=== PATIENT | male | born 1955 | race Caucasian/White ===

== ENCOUNTER 2023-03-09 23:18 | Inpatient (IN) | payer MEDICARE ==
[~2023-03-09] VITALS: Ht 177.8 cm; Wt 96.0 kg
[~2023-03-09 23:18] MED LIST: AMOXICILLIN/CL875 MG PO; ANTIPYRINE/BENZ1 SOL AS; CIPRODEX1 ML AS; CLONIDINE0.1 MG PO; HYDROCHLOROT12.5 MG PO; METOPROL TAR25 M1 PO; METOPROL TAR25 MG PO; PRILOSEC40 MG PO
--- NOTE | 2023-03-09 23:18 | NUR ---
PT ARRIVES VIA EMS STRETCHER IN STABLE CONDITION, PT ALERT TO PERSON AND PLACE, NO SLURRED SPEECH OR FACIAL DROOP NOTED, CEMENT [place] HIGHWAYS AND STREETS EQUAL AND STRONG BILATERALLY, NO DRIFT NOTED ON EXTREMITIES. PT PLACED ON STOKE BED, STROKE ALERT CALLED. VITAL SIGNS OBTAINED WHILE ENROUTE TO CT, 101.5 ORALLY. PT FOLLOWS VERBAL COMMANDS, TALKING AND SMILING AT STAFF.
--- NOTE | 2023-03-09 23:30 | NUR ---
CAT SCAN BEING DONE AT THIS TIME. TELEMED CART AT PT'S BEDSIDE. AWAITING CALL FROM TELENEUROLOGY.
[2023-03-09 23:43] LABS: BASO% 0.1 % (0-3); EOS% 0.2 % (0-8); HEMATOCRIT 41.9 % (39.0-50.0); HEMOGLOBIN 14.7 g/dl (14.0-18.0); IMMATURE GRANULOCYTES 0.2 % (0.0-5.0); MEAN CELL VOLUME 84.8 fL CALC (80.0-100.0); MEAN CORPUSCULAR HGB 29.8 pG CALC (26.0-32.0); MEAN CORPUSCULAR HGB CONC 35.1 g/dL CAL (32.0-36.0); MONO% 2.8 % (2-13); NEUT# 11.8 thou/uL (1.82-7.42); NEUT% 91.7 % (42-76); RED BLOOD COUNT 4.94 mill/uL (4.70-6.10)
--- NOTE | 2023-03-09 23:48 | NUR ---
CALL FROM TELESPECIALIST TO INFORM ME THAT TELENEUROLOGIST IS UNABLE TO CONTACT ME VIA TELEMED AND THAT AN AUDIO CALL WILL BE MADE. NO CHANGE IN PT STATUS. PT REMAINS ON CT TABLE WITH NO COMPLAINTS VOICED.
[2023-03-09 23:53] LABS: ALBUMIN 4.4 g/dL (3.2-5.0); BILIRUBIN, TOTAL 1.4 mg/dL (0.2-1.3); CREATININE 1.6 mg/dL (0.7-1.3); POTASSIUM 3.4 mmol/l (3.5-5.1); TOTAL PROTEIN 7.6 g/dL (6.3-8.2)
[2023-03-09 23:56] LABS: CHOLESTEROL HDL RATIO 3.6 (<4.4 (CALC))
[2023-03-09 23:57] LABS: INTERNATIONAL NORMALIZED RATIO 1.1 RATIO (0.7-1.3); PROTHROMBIN TIME 10.6 SECONDS (9.0-12.5)
[2023-03-10] VITALS (81 sets, daily range): BP systolic 73–193; BP diastolic 30–123
--- NOTE | 2023-03-10 | NUR ---
CALL FROM CHARGE NURSE STATING THAT NO CTA TO BE PERFORMED PER DR PULIDO S/T CREATININE OF 1.8 AND GFR OF 41, PT BROUGHT TO ER ROOM 11 VIA STRETCHER IN STABLE CONDITION. SPOUSE AT BEDSIDE. PLACED ON TECHNICAL SUPPORT REPRESENTATIVE WHICH SHOWS SINUS TACH 101. PT FOLLOWING VERBAL COMMANDS, TALKING WITH SPOUSE WITH CLEAR SPEECH. SMILE IS SYMMETRICAL,
--- NOTE | 2023-03-10 00:30 | NUR ---
IVF INFUSING LEFT AC, SITE WITHOUT REDNESS/SWELLING. VITAL SIGNS STABLE. NO NEURO DEFICITS NOTED AT THIS TIME. SPOUSE REMAINS AT BEDSIDE.
[2023-03-10] MEDS ORDERED: MEMANTINE HYDROC5 MG PO (00:54)
[2023-03-10] MEDS ORDERED: LIPITOR10 M1 PO (00:55)
[2023-03-10] MEDS ORDERED: CHLORTHALIDONE25 MG PO (00:56)
[2023-03-10] MEDS ORDERED: VALSARTAN160 MG PO (00:56)
[2023-03-10 00:57] LABS: URINE BILIRUBIN - DIPSTICK Negative (NEGATIVE); URINE BLOOD DIPSTICK Trace-lysed (NEGATIVE); URINE GLUCOSE - DIPSTICK Negative (NEGATIVE); URINE KETONE Negative (NEGATIVE); URINE NITRITE - DIPSTICK Negative (Negative); URINE PH 6.5 (4.5-8.0); URINE UROBILINOGEN - DIPSTICK 0.2 E.U./dL (0.2)
[2023-03-10 01:04] LABS: URINE COLOR Yellow; URINE LEUK ESTERASE Small (NEGATIVE); URINE PROTEIN - DIPSTICK Negative (NEG-TRACE)
[2023-03-10 01:06] LABS: URINE BACTERIA MODERATE hpf; URINE EPITHELIAL CELLS MODERATE EPI/hpf (0-FEW)
--- NOTE | 2023-03-10 01:30 | NUR ---
DR PULIDO AT BEDSIDE TO DISCUSS CLINICAL FINDINGS AND PLANS FOR ADMISSION. PT AND SPOUSE VERBALIZED UNDERSTANDING. PT REQUESTING URINAL, 300CC YELLOW URINE NOTED.
--- NOTE | 2023-03-10 02:00 | NUR ---
REPORT CALLED TO UVALDO WATTS. PATIENT BEING TRANSFERRED TO ICU 4 MEDSURG OVERFLOW.
--- NOTE | 2023-03-10 02:30 | NUR ---
PATIENT TRANSFERRED TO ICU 4, VSS, AIRWAY PATENT, ALL BELONGINGS SENT WITH PATIENT, PATIENT ALERT AND ORIENTATED, PATIENT ABLE TO WALK SLOWLY WITH X2 NURSE ASSIST TO ICU BED. PATIENT VOICES APPRECIATION OF CARE, NURSE WATTS AT BEDSIDE.
--- NOTE | 2023-03-10 05:10 | NUR ---
SPOKE WITH DR JIANG R/T PATIENT BP, LEVOPHED ORDERED PRN FOR MAP LESS THAN 65. PATIENT OOB TO URINATE, LINENS CHANGED, GOWN CHANGED, PATIENT AWAKE AND ALERT, CONFUSED AT TIMES. NEW ORDER FAXED TO [facility].
[2023-03-10 07:25] LABS: BASO% 0.1 % (0-3); EOS% 0.1 % (0-8); HEMATOCRIT 37.1 % (39.0-50.0); HEMOGLOBIN 13.1 g/dl (14.0-18.0); IMMATURE GRANULOCYTES 0.3 % (0.0-5.0); LYMPH% 9.3 % (15-41); MEAN CELL VOLUME 85.7 fL CALC (80.0-100.0); MEAN CORPUSCULAR HGB 30.3 pG CALC (26.0-32.0); MEAN CORPUSCULAR HGB CONC 35.3 g/dL CAL (32.0-36.0); MONO% 8.9 % (2-13); NEUT# 15.71 thou/uL (1.82-7.42); NEUT% 81.3 % (42-76); RED BLOOD COUNT 4.33 mill/uL (4.70-6.10); RED CELL DISTRI WIDTH 12.1 % (11.5-15.5)
--- NOTE | 2023-03-10 07:40 | NUR ---
report received from Rekha Spencer RN; care assumed
[2023-03-10 07:53] LABS: C-REACTIVE PROTEIN 3.9 mg/dL (0-0.9); CHOLESTEROL HDL RATIO 3.6 (<4.4 (CALC)); CREATININE 1.6 mg/dL (0.7-1.3); MAGNESIUM 1.4 mg/dL (1.6-2.3); POTASSIUM 3.7 mmol/l (3.5-5.1)
--- NOTE | 2023-03-10 08:20 | NUR ---
pt awake in bed; no apparent distress noted; pt offers no complaints; assessment completed at this time; pt alert to person and place; confusion is noted; pt denies pain; no n/v noted; resp even and unlabored; lungs clear; skin color wnl; ra; hr reg; strong pulses; edema noted; sr on monitor; abd soft with bs present; no bm noted per inspector automatic typewriter; pt voiding without complication; no redness or edema noted at site; #18 patent to lac with ivf/ levophed gtt infusing at 4mcg/min; no redness or edema noted at site; #22 started to rh x1 attempt; flushed and patent; plan of care/am meds explained; call light within reach; will continue to monitor
--- NOTE | 2023-03-10 10:00 | NUR ---
awake in bed; sr on monitor; will continue to monitor
--- NOTE | 2023-03-10 11:48 | NUR ---
Dr Allen present at bedside to assess pt and discuss plan of care
--- NOTE | 2023-03-10 12:00 | NUR ---
awake in bed; spouse at bedside; pt offers no complaints; iv intact; will continue to monitor
--- NOTE | 2023-03-10 14:06 | NUR ---
awake; out of bed per self; pt has dislodged iv to lac; assist back to bed; neuro consult completed with Dr Gilmore at this time; no neuro deficits noted; recommendations dictated/reviewed; will continue to monitor
--- NOTE | 2023-03-10 14:50 | NUR ---
call placed to Dr Allen in regards to neurology recommendation of changing cefepime; Dr Allen informed software writer keep medication for now and await MRI results prior to changing medications;
--- NOTE | 2023-03-10 14:56 | NUR ---
pt transferred to MRI via wc accompanied by Jackie Shetty CNA; pt in stable condition; MRI screening verified with pt and sign other prior to; pt has been pre-medicated
--- NOTE | 2023-03-10 15:42 | NUR ---
bp reassessed ; pt transferred to med surg tele room 279 accompanied by Kenny Rangel RN; belongings sent with pt; report provided at bedside
--- NOTE | 2023-03-10 16:04 | NUR ---
RECEIVE REPORT FROM GERONIMO BAILON. PATIENT ALERT AND ORIENTED X1. STABLE AT THIS TIME. PT IS TRANSFER TO MED SURG UNIT. PATIENT IS EDUCATED ABOUD TRNASFER, MEDICATIONS AND NURSING PLAN. PT REFER UNDERSTAND. SAFETY AND FALL PRECAUTIONS IN PLACE. CALL LIGHT WITHIN IN REACH.
--- NOTE | 2023-03-10 16:16 | NUR ---
awake in bed; no distress noted; aflutter on monitor; guards x2 at bedside; o2 per nc; call light within reach; will continue to monitor
[2023-03-11 00:37] VITALS: BP 106/64
[2023-03-11 04:50] VITALS: BP 115/74
[2023-03-11 07:13] VITALS: BP 132/86
--- NOTE | 2023-03-11 08:00 | NUR ---
GOT REPORT FROM HEALTH DIAGNOSTICS TEACHER. PATIENT ASSESS. AOX3. DENIES ANY COMPLAINTS AT THIS TIME. PATIENT HAS CALL LIGHT AND BEDSIDE TABLE WITH IN REACH. ADVISED TO CALL IF NEEDING ANYTHING.
[2023-03-11 09:42] LABS: HEMATOCRIT 41.4 % (39.0-50.0); HEMOGLOBIN 14.6 g/dl (14.0-18.0); MEAN CORPUSCULAR HGB 30.7 pG CALC (26.0-32.0); MEAN CORPUSCULAR HGB CONC 35.3 g/dL CAL (32.0-36.0); RED BLOOD COUNT 4.76 mill/uL (4.70-6.10); RED CELL DISTRI WIDTH 12.4 % (11.5-15.5)
[2023-03-11 09:46] LABS: ALBUMIN 4.1 g/dL (3.2-5.0); BILIRUBIN, TOTAL 1.4 mg/dL (0.2-1.3); CREATININE 1.6 mg/dL (0.7-1.3); TOTAL PROTEIN 6.9 g/dL (6.3-8.2)
[2023-03-11 10:54] VITALS: BP 128/88
[2023-03-11] MEDS ORDERED: KEFLEX500 MG PO (13:37)
--- NOTE | 2023-03-11 13:55 | NUR ---
Discharge instructions given. Patient verbalizes understanding of same. Discharged in stable condition via Wheelchair to Home with family. All belongings sent with pt.
--- NOTE | 2023-03-11 14:25 | NUR ---
PRELIMINARY BLOOD CULTURE RESULTS XIE TO DR MOSQUEDA. NO CHANGES NEEDED
--- NOTE | 2023-03-12 08:09 | NUR ---
FINAL BLOOD CULTURE RESULTS CALLED TO DR MOSQUEDA. CORYNRBACTERIUM IS CONSIDERATE A CONTAMINATION. NO NEW ORDERS.
--- NOTE | 2023-03-13 07:20 | NUR ---
NEW RX FOR CEFDINIR 300MG CALLED TO [facility], PATIENT IS AWARE AND WILL FLIGHT PARAMEDIC.
== END 2023-03-11 13:55 | disposition home or self-care (01) | DRG 871 ==
LOC: ED 23:18 → ED-I 03-10 01:15 → ED 03-10 01:48 → ICU 03-10 01:49 → MS2 03-10 15:44
PROVIDERS: Emergency Medicine; Student in an Organized Health Care Education/Training Program; ADMIT Internal Medicine; ATTEND Internal Medicine
DX: A41.9 Sepsis, unspecified organism (principal); G93.41 Metabolic encephalopathy; N39.0 Urinary tract infection, site not specified; N17.9 Acute kidney failure, unspecified; R65.20 Severe sepsis without septic shock; I10 Essential (primary) hypertension; F03.90 Unspecified dementia, unspecified severity, without behavioral disturbance, psychotic disturbance, mood disturbance, and anxiety; B96.89 Other specified bacterial agents as the cause of diseases classified elsewhere
CPT/HCPCS: J0692; J2060; J3475

== ENCOUNTER 2024-03-30 18:32 | Observation (INO) | payer MEDICARE ==
[~2024-03-30] VITALS: Ht 177.8 cm; Wt 81.8 kg
[~2024-03-30 18:32] MED LIST changes: +CHLORTHALIDONE25 MG PO; +KEFLEX500 MG PO; +LIPITOR10 M1 PO; +MEMANTINE HYDROC5 MG PO; +VALSARTAN160 MG PO
[2024-03-30 18:38] VITALS: BP 131/86
[2024-03-30 19:21] LABS: BASO% 0.2 % (0-3); EOS% 0.5 % (0-8); HEMATOCRIT 42.6 % (39.0-50.0); HEMOGLOBIN 14.9 g/dl (14.0-18.0); IMMATURE GRANULOCYTES 0.1 % (0.0-5.0); LYMPH% 12.3 % (15-41); MEAN CELL VOLUME 85.5 fL CALC (80.0-100.0); MEAN CORPUSCULAR HGB 29.9 pG CALC (26.0-32.0); MONO% 10.4 % (2-13); NEUT# 7.49 thou/uL (1.82-7.42); NEUT% 76.5 % (42-76); RED BLOOD COUNT 4.98 mill/uL (4.70-6.10); RED CELL DISTRI WIDTH 12.9 % (11.5-15.5)
[2024-03-30 19:30] VITALS: BP 123/71
[2024-03-30 19:32] LABS: ALBUMIN 4.3 g/dL (3.2-5.0); BILIRUBIN, TOTAL 1.3 mg/dL (0.2-1.3); CREATININE 1.2 mg/dL (0.7-1.3); POTASSIUM 3.7 mmol/l (3.5-5.1); TOTAL PROTEIN 6.9 g/dL (6.3-8.2)
[2024-03-30] MEDS ORDERED: AMLODIPINE BESY10 MG PO (21:26)
[2024-03-30] MEDS ORDERED: MAGNESIUM HYDROXIDE 30 ML UDC PO PRN (21:35)
[2024-03-30] MEDS ORDERED: ACETAMINOPHEN 325 MG/TAB PO PRN (21:35)
[2024-03-30] MEDS ORDERED: SODIUM CHLORIDE 0.9% 1,000 ML IV PRN (21:35)
[2024-03-30] MEDS ORDERED: ACETAMINOPHEN 500 MG TAB PO ONE (21:40)
[2024-03-30] MEDS ORDERED: KETOROLAC TROMETHAMINE 30 MG/ML SDV IV ONE (21:40)
[2024-03-30 22:10] VITALS: BP 142/83
[2024-03-30] MEDS ORDERED: KETOROLAC TROMETHAMINE 15 MG/ML SDV IV PRN (22:35)
[2024-03-30] MEDS ORDERED: HYDROcodone 5 MG/Acetaminophen 325 MG/COMBO PO PRN (22:35)
[2024-03-30] MEDS ORDERED: MORPHINE SULFATE 4 MG/ML VIAL IV PRN (22:35)
[2024-03-31] VITALS (8 sets, daily range): BP systolic 108–170; BP diastolic 70–106
[2024-03-31 04:37] LABS: BASO% 0.2 % (0-3); EOS% 0.8 % (0-8); HEMATOCRIT 40.6 % (39.0-50.0); HEMOGLOBIN 14.1 g/dl (14.0-18.0); IMMATURE GRANULOCYTES 0.2 % (0.0-5.0); MEAN CELL VOLUME 86.8 fL CALC (80.0-100.0); MEAN CORPUSCULAR HGB 30.1 pG CALC (26.0-32.0); MEAN CORPUSCULAR HGB CONC 34.7 g/dL CAL (32.0-36.0); NEUT# 6.54 thou/uL (1.82-7.42); NEUT% 70.8 % (42-76); RED BLOOD COUNT 4.68 mill/uL (4.70-6.10); RED CELL DISTRI WIDTH 12.8 % (11.5-15.5)
[2024-03-31 04:44] LABS: BILIRUBIN, TOTAL 1.8 mg/dL (0.2-1.3); CHOLESTEROL HDL RATIO 2.1 (<4.4 (CALC)); CREATININE 1.3 mg/dL (0.7-1.3); POTASSIUM 3.8 mmol/l (3.5-5.1); TOTAL PROTEIN 6.5 g/dL (6.3-8.2)
[2024-03-31 04:47] LABS: MAGNESIUM 1.9 mg/dL (1.6-2.3)
[2024-03-31 05:54] LABS: URINE BILIRUBIN - DIPSTICK Negative (NEGATIVE); URINE BLOOD DIPSTICK Negative (NEGATIVE); URINE GLUCOSE - DIPSTICK Negative (NEGATIVE); URINE KETONE 15 mg/dL (NEGATIVE); URINE LEUK ESTERASE Negative (NEGATIVE); URINE NITRITE - DIPSTICK Negative (Negative); URINE PROTEIN - DIPSTICK 30 mg/dL (NEG-TRACE); URINE UROBILINOGEN - DIPSTICK 0.2 E.U./dL (0.2)
[2024-03-31 05:56] LABS: URINE COLOR Yellow
[2024-03-31 06:05] LABS: URINE SQUAMOUS EPITHELIAL CELL RARE EPI/hpf (0-FEW)
[2024-03-31] MEDS ORDERED: MEMANTINE Hydrochloride 10 MG/TAB PO SCH (09:00)
[2024-03-31] MEDS ORDERED: amLODIPine BESYLATE 5 MG/TAB PO SCH (09:00)
[2024-03-31] MEDS ORDERED: METOPROLOL TARTRATE 25 MG/TAB PO SCH (11:00)
[2024-03-31] MEDS ORDERED: SODIUM CHLORIDE 0.9% 1,000 ML IV PRN (14:40)
[2024-03-31] MEDS ORDERED: ENOXAPARIN SODIUM 40 MG/0.4 ML SYR SC SCH (21:00)
[2024-03-31] MEDS ORDERED: ATORVASTATIN CALCIUM 10 MG/TAB PO SCH (21:00)
[2024-04-01 04:26] VITALS: BP 125/74
[2024-04-01 05:24] LABS: BASO% 0.4 % (0-3); EOS% 0.7 % (0-8); HEMATOCRIT 40.7 % (39.0-50.0); HEMOGLOBIN 14.3 g/dl (14.0-18.0); IMMATURE GRANULOCYTES 0.3 % (0.0-5.0); LYMPH% 16.5 % (15-41); MEAN CELL VOLUME 85.7 fL CALC (80.0-100.0); MEAN CORPUSCULAR HGB 30.1 pG CALC (26.0-32.0); MEAN CORPUSCULAR HGB CONC 35.1 g/dL CAL (32.0-36.0); MONO% 10.5 % (2-13); NEUT# 5.38 thou/uL (1.82-7.42); NEUT% 71.6 % (42-76); RED BLOOD COUNT 4.75 mill/uL (4.70-6.10); RED CELL DISTRI WIDTH 12.6 % (11.5-15.5)
[2024-04-01 05:29] LABS: ALBUMIN 3.4 g/dL (3.2-5.0); TOTAL PROTEIN 6.3 g/dL (6.3-8.2)
[2024-04-01 05:41] LABS: POTASSIUM 3.5 mmol/l (3.5-5.1)
[2024-04-01 05:43] LABS: PROTHROMBIN TIME 9.9 SECONDS (9.0-12.5)
[2024-04-01 06:11] LABS: BILIRUBIN, TOTAL 1.1 mg/dL (0.2-1.3); CREATININE 1.4 mg/dL (0.7-1.3); MAGNESIUM 1.8 mg/dL (1.6-2.3)
[2024-04-01 06:40] VITALS: BP 130/83
[2024-04-01 15:02] VITALS: BP 112/65
[2024-04-01 18:56] VITALS: BP 144/80
[2024-04-02 03:56] VITALS: BP 134/79
[2024-04-02 06:43] LABS: ALBUMIN 3.9 g/dL (3.2-5.0); BILIRUBIN, TOTAL 1.1 mg/dL (0.2-1.3); CREATININE 1.4 mg/dL (0.7-1.3); MAGNESIUM 1.8 mg/dL (1.6-2.3); POTASSIUM 3.7 mmol/l (3.5-5.1); TOTAL PROTEIN 6.6 g/dL (6.3-8.2)
[2024-04-02 06:44] LABS: BASO% 0.3 % (0-3); EOS% 0.4 % (0-8); HEMATOCRIT 43.1 % (39.0-50.0); HEMOGLOBIN 15.2 g/dl (14.0-18.0); IMMATURE GRANULOCYTES 0.2 % (0.0-5.0); LYMPH% 10.5 % (15-41); MEAN CELL VOLUME 84.8 fL CALC (80.0-100.0); MEAN CORPUSCULAR HGB 29.9 pG CALC (26.0-32.0); MEAN CORPUSCULAR HGB CONC 35.3 g/dL CAL (32.0-36.0); MONO% 11.2 % (2-13); NEUT# 7.47 thou/uL (1.82-7.42); NEUT% 77.4 % (42-76); RED BLOOD COUNT 5.08 mill/uL (4.70-6.10); RED CELL DISTRI WIDTH 12.4 % (11.5-15.5)
[2024-04-02 07:17] VITALS: BP 153/79
[2024-04-02 08:20] VITALS: BP 170/916
[2024-04-02] MEDS ORDERED: LOPRESSOR25 MG PO (10:56)
== END 2024-04-02 14:29 ==
LOC: ED 18:32 → ED-I 19:23 → ED 21:20 → MS2 21:21
PROVIDERS: Nurse Practitioner Family; ADMIT Student in an Organized Health Care Education/Training Program; ATTEND Student in an Organized Health Care Education/Training Program
DX: S82.841A Displaced bimalleolar fracture of right lower leg, initial encounter for closed fracture (principal); R53.1 Weakness; R62.7 Adult failure to thrive; I12.9 Hypertensive chronic kidney disease with stage 1 through stage 4 chronic kidney disease, or unspecified chronic kidney disease; N18.31 Chronic kidney disease, stage 3a; G30.9 Alzheimer's disease, unspecified; F02.80 Dementia in other diseases classified elsewhere, unspecified severity, without behavioral disturbance, psychotic disturbance, mood disturbance, and anxiety; W19.XXXA Unspecified fall, initial encounter; Y92.009 Unspecified place in unspecified non-institutional (private) residence as the place of occurrence of the external cause; Z91.81 History of falling; Z20.822 Contact with and (suspected) exposure to COVID-19
CPT/HCPCS: G0378; J1650

== ENCOUNTER 2024-04-22 10:31 | Inpatient (IN) | payer MEDICARE ==
[~2024-04-22] VITALS: Ht 177.8 cm; Wt 79.9 kg
[2024-04-22] VITALS (39 sets, daily range): BP systolic 78–143; BP diastolic 39–84
[~2024-04-22 10:31] MED LIST changes: +AMLODIPINE BESY10 MG PO; +LOPRESSOR25 MG PO
--- NOTE | 2024-04-22 10:31 | NUR ---
PT BROUGHT BACK TO ER ROOM 6 VIA EMS, NO DISTRESS NOTED
[2024-04-22] MEDS ORDERED: SODIUM CHLORIDE 0.9% 1,000 ML IV ONE ×2 (10:50→13:50)
[2024-04-22 10:56] LABS: BASO% 0.4 % (0-3); EOS% 1.3 % (0-8); HEMOGLOBIN 13.7 g/dl (14.0-18.0); IMMATURE GRANULOCYTES 0.3 % (0.0-5.0); LYMPH% 13.5 % (15-41); MEAN CELL VOLUME 87.6 fL CALC (80.0-100.0); MEAN CORPUSCULAR HGB 29.3 pG CALC (26.0-32.0); MEAN CORPUSCULAR HGB CONC 33.4 g/dL CAL (32.0-36.0); MONO% 7.1 % (2-13); NEUT# 6.15 thou/uL (1.82-7.42); NEUT% 77.4 % (42-76); RED BLOOD COUNT 4.68 mill/uL (4.70-6.10); RED CELL DISTRI WIDTH 11.7 % (11.5-15.5)
--- NOTE | 2024-04-22 11:04 | NUR ---
PT RESTING IN BED, VSS, PTS S/O AT BEDSIDE
[2024-04-22 11:08] LABS: ALBUMIN 4.1 g/dL (3.2-5.0); CREATININE 1.5 mg/dL (0.7-1.3); POTASSIUM 3.7 mmol/l (3.5-5.1)
[2024-04-22] MEDS ORDERED: REMERON15 MG PO (11:13)
[2024-04-22] MEDS ORDERED: TAMSULOSIN0.4 MG PO (11:14)
[2024-04-22] MEDS ORDERED: AMLODIPINE BESYL5 MG PO (11:18)
[2024-04-22] MEDS ORDERED: AZITHROMYCIN 500 MG in SODIUM CHLORIDE 0.9% 250 ML IV ONE (12:45)
[2024-04-22] MEDS ORDERED: cefTRIAXone SODIUM 2 GM in SODIUM CHLORIDE 0.9% 100 ML IV ONE (12:45)
--- NOTE | 2024-04-22 13:18 | NUR ---
REPLACED THE PTS ALMARAZ CATH, PER MD VERBAL ORDER, PT TOLERATED WELL, URINE SAMPLE COLLECTED, PT LEFT RESTING IN BED, HIS S/O AT SIDE, CALL LIGHT WITHIN REACH
[2024-04-22 13:59] LABS: URINE BILIRUBIN - DIPSTICK Negative (NEGATIVE); URINE BLOOD DIPSTICK Large (NEGATIVE); URINE GLUCOSE - DIPSTICK Negative (NEGATIVE); URINE KETONE Negative (NEGATIVE); URINE PROTEIN - DIPSTICK 100 mg/dL (NEG-TRACE); URINE SPECIFIC GRAVITY 1.025
[2024-04-22 14:00] LABS: URINE COLOR Yellow; URINE LEUK ESTERASE Small (NEGATIVE); URINE NITRITE - DIPSTICK Positive (Negative)
[2024-04-22] MEDS ORDERED: AZITHROMYCIN 500 MG/VIAL SDV IV ONE (14:00)
[2024-04-22 14:01] LABS: URINE BACTERIA MANY hpf; URINE EPITHELIAL CELLS MODERATE EPI/hpf (0-FEW)
[2024-04-22] MEDS ORDERED: ACETAMINOPHEN 325 MG/TAB PO PRN (14:50)
[2024-04-22] MEDS ORDERED: SODIUM CHLORIDE 0.9% 1,000 ML IV PRN (14:50)
[2024-04-22] MEDS ORDERED: MAGNESIUM HYDROXIDE 30 ML UDC PO PRN (14:50)
--- NOTE | 2024-04-22 15:03 | NUR ---
AT BEDSIDE, UPDATING THE PT AND HIS FAMILY ON THE PLAN OF CARE
--- NOTE | 2024-04-22 16:42 | NUR ---
CALLED [facility] SPOKE WITH ELPIDIO GAVE PT INFO, PT TO BE ADMITED TO [facility] BED 280 ON TELE [address]
[2024-04-22] MEDS ORDERED: ATORVASTATIN CALCIUM 10 MG/TAB PO SCH (17:00)
--- NOTE | 2024-04-22 20:00 | NUR ---
RECEIVED REPORT FROM DAYSHIFT NURSE ELPIDIO. PT NOTED SITTING UP FOWLERS IN BED, ON RM AIR. TELE MONITOR IN PLACE AND ALMARAZ CATHETER NOTED WITH TAN COLORED URINE. PT IS A/O TO SELF ONLY, CONFUSED ON PLACE, TIME AND SITUATION. EDUCATED PT ON PLAN OF CARE, MED SCHEDULE AND ORIENTED PT TO ROOM AND CALL GALLEGOS. WILL NEED TO REINFORCE. NURSING ASSESSMENT COMPLETED, IV SITE APPEARS HEALTHY AND INTACT AT THIS TIME. CALL LIGHT WITHIN REACH AND SAFETY PRECAUTIONS IN PLACE.
[2024-04-22] MEDS ORDERED: MIRTAZAPINE 15 MG/TAB PO SCH (21:00)
[2024-04-22] MEDS ORDERED: MEMANTINE Hydrochloride 10 MG/TAB PO SCH (21:00)
[2024-04-22] MEDS ORDERED: Heparin SODIUM (Porcine) 5,000 UNITS/ML SDV SC SCH (22:00)
--- NOTE | 2024-04-22 23:36 | NUR ---
PT PULLED IV OUT IN LAC, CATHETER WAS INTACT. PT NOT ABLE TO RECALL WHY HE PULLED IT OUT. PT STILL PRESENTS DIORIENTED AND CONFUSED TO PLACE, TIME AND SITUATION. REORIENTATION NEEDED. NEW IV ACCESS STARTED, IVF PER EMAR. ENCOURAGED PT NOT TO PULL AT TELE LEADS EITHER AND EDUCATED ON IMPORTANCE OF THEM, WILL HAVE TO REINFORCE. PT DENIES ANY N/V/P AT THIS TIME. LAYING IN BED SEMI FOWLERS. CALL LIGHT WITHIN REACH AND SAFETY PRECCAUTIONS IN PLACE.
[2024-04-23] VITALS (7 sets, daily range): BP systolic 113–143; BP diastolic 70–84
--- NOTE | 2024-04-23 01:38 | NUR ---
NURSE TO NURSE REPORT RECEIVED. THIS NURSE TOOK OVER CARE OF PT. PT RESTING NO DISTRESS NOTED ON EXAM. CALL LIGHT WITHIN REACH. PLAN OF CARE ONGOING.
[2024-04-23 05:19] LABS: BASO% 0.2 % (0-3); EOS% 1.2 % (0-8); HEMATOCRIT 37.2 % (39.0-50.0); HEMOGLOBIN 12.4 g/dl (14.0-18.0); IMMATURE GRANULOCYTES 0.2 % (0.0-5.0); LYMPH% 15.1 % (15-41); MEAN CELL VOLUME 87.3 fL CALC (80.0-100.0); MEAN CORPUSCULAR HGB 29.1 pG CALC (26.0-32.0); MEAN CORPUSCULAR HGB CONC 33.3 g/dL CAL (32.0-36.0); MONO% 7.7 % (2-13); NEUT# 6.74 thou/uL (1.82-7.42); NEUT% 75.6 % (42-76); RED BLOOD COUNT 4.26 mill/uL (4.70-6.10); RED CELL DISTRI WIDTH 11.7 % (11.5-15.5)
[2024-04-23 05:37] LABS: ALBUMIN 3.4 g/dL (3.2-5.0); BILIRUBIN, TOTAL 0.9 mg/dL (0.2-1.3); CREATININE 1.1 mg/dL (0.7-1.3); MAGNESIUM 1.9 mg/dL (1.6-2.3); POTASSIUM 4.1 mmol/l (3.5-5.1); TOTAL PROTEIN 6.4 g/dL (6.3-8.2)
--- NOTE | 2024-04-23 06:25 | NUR ---
PT RESTING IN BED IN AND OUT OF CONFUSION. NO PAIN REPORTED AT THIS TIME. IV CHECKED WORKING PROPERLY IV FLUID INFUSION ONGOING. ALMARAZ CHECKED NO KINKS. PT ABLE TO REPOSITION HIMSELF. PT HAS A BOOT ON HIS RIGHT FOOT REMOVED AND SKIN CHECKED, NO SKIN ISSUES AT THIS TIME. CALL LIGHT WITHIN REACH. BED ALARM ON. PLAN OF CARE ONGOING.
--- NOTE | 2024-04-23 07:45 | NUR ---
PT LAYING IN BED RESTING WITH EYES CLOSED, AROUSES EASILY TO VERBAL STIMULI, PT IS ALERT AND ORIENTED TO PERSON, RESP. EVEN AND UNLABORED, LUNG SOUNDS DIMINISHED IN THE BASES, PUPILS PERRL, NORMAL S1 S2 HEART SOUNDS, TELE MONITOR IN PLACE, ABD DISTENDED AND SOFT WITH ACTIVE BOWEL SOUNDS, 22G LFA IV WITH FLUIDS INFUSING AT PRESCRIBED RATE, ORTHO BOOT ON R FOOT, STRONG RADIAL PULSES, WEAK PEDAL PULSES, SAETY MEASURES REINFORCED, CALL GALLEGOS WITHIN REACH
[2024-04-23] MEDS ORDERED: PNEUMOCOCCAL 20-VALENT CONJUGA 0.5 ML/DOSE INJ IM SCH (09:00)
--- NOTE | 2024-04-23 11:45 | NUR ---
PT'S SPOUSE AT BEDSIDE AND ASSISTING PT WITH EATING LUNCH, PT IS TOLERATING WELL, PT DENIES ANY NEEDS AT THIS TIME, CALL GALLEGOS WITHIN REACH
--- NOTE | 2024-04-23 13:45 | NUR ---
PT LAYING IN BED WATCHING TV, AT BEDSIDE, DENIES ANY NEEDS AT THIS TIME, CALL GALLEGOS WITHING REACH
[2024-04-23] MEDS ORDERED: AZITHROMYCIN 500 MG in SODIUM CHLORIDE 0.9% 250 ML IV SCH (14:30)
--- NOTE | 2024-04-23 16:05 | NUR ---
PT LAYING IN BED WATCHING TV, ASSISTED WITH GETTING STRAIGHTENED UP, PT DENIES ANY NEEDS AT THIS TIME, CALL GALLEGOS WITHIN REACH
--- NOTE | 2024-04-23 17:10 | NUR ---
PT'S AT BEDSIDE ASSISTING PT WITH EATING, PT IS TOLERATING WELL, DENIES ANY NEEDS AT THIS TIME. CALL GALLEGOS WITHIN REACH
--- NOTE | 2024-04-23 19:45 | NUR ---
PT RESTING NO DISTRESS NOTED. PT ONLY ALERT TO SELF NO PAIN REPORTED AT THIS TIME. VS WNL ON RA LUNG SOUND DIMINISHED. NEW IV STARTED ON HIS RFA 22G WITH IV FLUIDS AT 100ML/HR SINCE PT REMOVED PRIOR IV BEFORE SHIFT CHANGE. ALMARAZ CATHETER WITH NO KINKS WORKING PROPERLY YELLW CLEAR URINE. PT STILL HAS A RIGHT BOOT IN PLACE FROM A PRIOR FX. PT ABLE TO SELF REPOSITION IN BED. PT PROVIDED ORAL FLUIDS. CALL LIGHT WITHIN REACH. BED ALARM ON. PLAN OF CARE ONGOING.
[2024-04-24] VITALS (12 sets, daily range): BP systolic 101–145; BP diastolic 68–91
--- NOTE | 2024-04-24 00:15 | NUR ---
PT RESTING SLIGHLY RESTLESS. NO PAIN REPORTED AT THIS TIME. CALL LIGHT WITHIN REACH. IV FLUIDS ONGOING. PLAN OF CARE ONGOING.
--- NOTE | 2024-04-24 04:00 | NUR ---
PT RESTING NO DISTRESS NOTED ON EXAM. SUNG HAS NO KINKS. IV FLUIDS ONGOING WORKING PROPERLY. RIGHT FOOT BOOT ON. NO PAIN REPORTED AT THIS TIME. CALL LIGHT WITHIN REACH. BED ALARM ON. PLAN OF CARE ONGOING.
[2024-04-24 05:46] LABS: BILIRUBIN, TOTAL 0.7 mg/dL (0.2-1.3); CREATININE 1.2 mg/dL (0.7-1.3); MAGNESIUM 1.8 mg/dL (1.6-2.3); POTASSIUM 3.7 mmol/l (3.5-5.1); TOTAL PROTEIN 5.8 g/dL (6.3-8.2)
[2024-04-24 05:51] LABS: BASO% 0.4 % (0-3); EOS% 2.3 % (0-8); HEMATOCRIT 35.4 % (39.0-50.0); HEMOGLOBIN 11.8 g/dl (14.0-18.0); IMMATURE GRANULOCYTES 0.3 % (0.0-5.0); LYMPH% 20.4 % (15-41); MEAN CELL VOLUME 88.3 fL CALC (80.0-100.0); MEAN CORPUSCULAR HGB 29.4 pG CALC (26.0-32.0); MEAN CORPUSCULAR HGB CONC 33.3 g/dL CAL (32.0-36.0); NEUT# 5.42 thou/uL (1.82-7.42); NEUT% 67.6 % (42-76); RED BLOOD COUNT 4.01 mill/uL (4.70-6.10); RED CELL DISTRI WIDTH 11.7 % (11.5-15.5)
--- NOTE | 2024-04-24 07:42 | NUR ---
PATIENT LYING AWAKE IN BED WATCHING TV. PATIENT A&OX3. BREATHING UNLABORED ON ROOM AIR. TELE INTACT. IV IN RFA INFUSING FLUIDS PER EMAR;SITE CLEAN AND INTACT. ALMARAZ IN PLACE. ASSESSMENT COMPLETED. PT DENIES ANY PAIN OR N/D/V AT THIS TIME. ENCOURAGED PT TO EAT BREAKFAST; PROVIDED SETUP. BED ALARM ACTIVE. BED IN LOWEST POSITION. CALL LIGHT WITHIN REACH WELL PERSONAL ITEMS. NO NEEDS AT THIS TIME. POC ONGOING.
--- NOTE | 2024-04-24 12:06 | NUR ---
PAITENT SITTING UP IN RECLINER WATCHING TV. AT BEDSIDE. PATIENT A&OX2. BREATHING UNLABORED ON ROOM AIR. TELE INTACT. IV IN RFA INFUSING FLUIDS PER EMAR;SITE CLEAN AND INTACT. PT DENIES ANY PAIN OR N/D/V AT THIS TIME. NO SIGNS OF DISTRESS NOTED. PERSONAL ITEMS WELL CALL LIGHT WIHTIN REACH. NO NEEDS AT THIS TIME. POC ONGOING.
--- NOTE | 2024-04-24 16:17 | NUR ---
PATIENT SITTING UP IN RECLINER WATCHING TV. UPON ENETERING ROOM, PT IS SEEN PULLING AT HIS CATHETER. INFORMED PT TO NOT PULL AT IT DUE TO IT POSSIBLY BEING PULLED OUT. PT VERBALIZED UNDERSTANDING AND STOPPED. TELE INTACT. BREATHING UNLABORED ON ROOM AIR. PT DENIES ANY PAIN OR N/D/V AT THIS TIME. PERSONAL ITEMS WITHIN REACH WELL CALL LIGHT. NO NEEDS AT THIS TIME. POC ONGOING.
--- NOTE | 2024-04-24 20:18 | NUR ---
PATIENT IN ROOM RESTING IN BED SEMI FOWLERS WITH EYES CLOSED. PATIENT RESPONDS TO VERBAL STIMULI. BED SIDE ASSESSMENT COMPLETE. PATIENT IS ON TELE SR. NO COMPLAINTS OF PAIN AT THIS TIME. PATIENT BOWEL SOUNDS PRESENT. PATIENT CATHETER INTACT. PATIENT HAS RIGHT BOOT TO RIGHT FOOT WITH SKIN INTACT. BED AT LOWEST POSITION. CALL LIGHT WITH IN REACH.
[2024-04-25] VITALS (8 sets, daily range): BP systolic 124–154; BP diastolic 76–88
--- NOTE | 2024-04-25 00:15 | NUR ---
PATIENT IN ROOM RESTING IN BED WITH EYES CLOSED. EQUAL UNLABORED RESPERATIONS. NO VISUAL SIGNS OF DISTRESS. BED AT LOWEST POSITION. CALL LIGHT WITH IN REACH.
--- NOTE | 2024-04-25 04:35 | NUR ---
PATIENT IN ROOM RESTING IN BED WITH EYES CLOSED. PATIENT HAS UNLABORED BREATHING. NO VISUAL SIGNS OF DISTRESS. BED AT LOWEST POSITION. CALL LIGHT WITH IN REACH.
[2024-04-25 05:57] LABS: BASO% 0.6 % (0-3); EOS% 2.5 % (0-8); HEMATOCRIT 33.9 % (39.0-50.0); HEMOGLOBIN 11.5 g/dl (14.0-18.0); IMMATURE GRANULOCYTES 0.3 % (0.0-5.0); LYMPH% 23.6 % (15-41); MEAN CELL VOLUME 86.7 fL CALC (80.0-100.0); MEAN CORPUSCULAR HGB 29.4 pG CALC (26.0-32.0); MEAN CORPUSCULAR HGB CONC 33.9 g/dL CAL (32.0-36.0); MONO% 9.6 % (2-13); NEUT# 4.58 thou/uL (1.82-7.42); NEUT% 63.4 % (42-76); RED BLOOD COUNT 3.91 mill/uL (4.70-6.10); RED CELL DISTRI WIDTH 11.9 % (11.5-15.5)
[2024-04-25 06:03] LABS: BILIRUBIN, TOTAL 0.7 mg/dL (0.2-1.3); CREATININE 1.2 mg/dL (0.7-1.3); MAGNESIUM 1.9 mg/dL (1.6-2.3); TOTAL PROTEIN 5.7 g/dL (6.3-8.2)
[2024-04-25 06:05] LABS: POTASSIUM 3.7 mmol/l (3.5-5.1)
--- NOTE | 2024-04-25 07:29 | NUR ---
PATIENT SITTING UP IN RECLINER WATCHING TV. PATIENT A&OX3. BREATHING UNLABORED ON ROOM AIR. TELE INTACT. IV IN RGIHT WRIST INFUSING FLUIDS PER EMAR;SITE CLEAN AND INTACT. ALMARAZ IN PLACE WITH NO KINKS. ASSESSMENT COMPLETED. PT DENIES ANY PAIN OR N/D/V AT THIS TIME. PERSONAL ITEMS WITHIN REACH WELL CALL LIGHT; EDUCATED PT ON USE. BED IN LOWEST POSITION. NO NEEDS AT THIS TIME. POC ONGOING.
[2024-04-25] MEDS ORDERED: TAMSULOSIN HCL 0.4 MG CAP PO SCH (08:00)
[2024-04-25] MEDS ORDERED: METOPROLOL TARTRATE 25 MG/TAB PO SCH (10:00)
[2024-04-25] MEDS ORDERED: amLODIPine BESYLATE 5 MG/TAB PO SCH (10:00)
--- NOTE | 2024-04-25 12:35 | NUR ---
PATIENT SITTING UP IN RECLINER WATCHING TV. BREATHING UNLABORED ON ROOM AIR. TELE INTACT. IV IN RIGHT WRIST INFUSING FLUIDS PER EMAR. ALMARAZ IN PLACE WITH NO KINKS. PT DENIES ANY PAIN OR N/D/V AT THIS TIME. PERSONAL ITEMS WELL CALL LIGHT WITHIN REACH. NO OTHER NEEDS AT THIS TIME. POC ONGOING.
--- NOTE | 2024-04-25 16:20 | NUR ---
PATIENT LYING SEMI-FOWLERS IN BED. BREATHING UNLABORED ON ROOM AIR. TELE INTACT. IV IN RIGHT WRIST INFUSING FLUIDS PER EMAR;SITE CLEAN AND INTACT. PT DENIES ANY PAIN OR N/D/V AT THIS TIME. ALMARAZ IN PLACE WITH NO KINKS. PERSONAL ITEMS WITHIN REACH. BED IN LOWEST POSITION. NO NEEDS AT THIS TIME. POC ONGOING.
--- NOTE | 2024-04-25 20:00 | NUR ---
PT RESTING NO DISTRESS NOTED ON EXAM. VS WNL ON RA NO PAIN REPORTED AT THIS TIME. IV FLUIDS INFUSION ONGOING. RIGHT FOOT BOOT ON ON EDEMA. ALMARAZ CATHETER CHECKED FOR KINKS WORKING PROPERLY. CALL LIGHT WITHIN REACH. BED ALARM ON. PLAN OF CARE ON GOING.
--- NOTE | 2024-04-26 00:20 | NUR ---
PT RESTING NO DISTRESS NOTED ON EXAM NO PAIN REPORTED AT THIS TIME. PT REPOSITIONED. IV FLUIDS ONGOING WORKING PROPERLY. ALMARAZ CHECKED NO KINKS. CALL LIGHT WITHIN REACH. BED ALARM ON. PLAN OF CARE ONGOING.
[2024-04-26 03:26] VITALS: BP 140/81
--- NOTE | 2024-04-26 03:53 | NUR ---
PT RESTING NO DISTRESS NOTED. PT REPOSITIONED IN BED. ALMARAZ CATHETER CHECKED NO KINKS. IV WORKING PROPERLY WITH FLUID INFUSION ONGOING. CALL LIGHT WITHIN REACH. BED ALARM ON. PLAN OF CARE ONGOING.
[2024-04-26 05:33] LABS: BASO% 0.6 % (0-3); EOS% 3.3 % (0-8); HEMATOCRIT 33.2 % (39.0-50.0); HEMOGLOBIN 11.4 g/dl (14.0-18.0); IMMATURE GRANULOCYTES 0.5 % (0.0-5.0); LYMPH% 22.7 % (15-41); MEAN CELL VOLUME 86.7 fL CALC (80.0-100.0); MEAN CORPUSCULAR HGB 29.8 pG CALC (26.0-32.0); MEAN CORPUSCULAR HGB CONC 34.3 g/dL CAL (32.0-36.0); MONO% 11.1 % (2-13); NEUT# 3.94 thou/uL (1.82-7.42); NEUT% 61.8 % (42-76); RED BLOOD COUNT 3.83 mill/uL (4.70-6.10); RED CELL DISTRI WIDTH 11.8 % (11.5-15.5)
[2024-04-26 05:47] LABS: BILIRUBIN, TOTAL 0.7 mg/dL (0.2-1.3); CREATININE 1.2 mg/dL (0.7-1.3); POTASSIUM 3.8 mmol/l (3.5-5.1); TOTAL PROTEIN 5.8 g/dL (6.3-8.2)
[2024-04-26 06:59] VITALS: BP 129/82
[2024-04-26] MEDS ORDERED: Polyethylene Glycol 3350 17 GM/PKT PO SCH ×2 (07:00→08:00)
[2024-04-26] MEDS ORDERED: LACTULOSE 20 GM/30 ML UDC PO SCH (08:00)
--- NOTE | 2024-04-26 08:50 | NUR ---
PATIENT A/O X2; ROOM AIR; BREATHING UNLABORED AND EVEN; DENIED ANY PAIN ;DENIED ANY N/D/V AT THIS TIME; WHEN ASKED WHEN HIS LAST BOWEL MOVEMENT, PATIENT WAS NOT SURE WHEN THE LAST ONE; PATIENT TOLERATED MEDICATION ADMIN WITH NOISSUES; IV SITE CLEAN AND INTACT RUNNING WITH NS @100; ASSESSMENT COMPLETED; SUNG WORKING WITH NOISSUES; TELE LEADS INTACT AND WORKING; CALL LIGHT WITHIN REACH, VERBALIZED UNDERSTANDING ON HOW TO USE, PERSONAL ITEMS WITHIN REACH, PATIENT LAYING SEMI DIAMOND EATING BREAKFAST;L BED IN LOWEST POSTION; SAFTEY MEASURES IN PLACE
[2024-04-26 11:24] VITALS: BP 132/80
[2024-04-26] MEDS ORDERED: BISACODYL 10 MG SUPP RE SCH (11:30)
--- NOTE | 2024-04-26 11:34 | NUR ---
SERGE PATEL WANTED LABOR RELATIONS ANALYST TO CALL TO SEE IF ITS OKAY TO GIVE ANTIBODIC EARLY PRIOR TO DISCHARGE, PHARAMCY APPROVED, MEDICATED; SAFTEY MEASURES IN PLACE; PATEINT HAVE A LOW GRADE TEMP MEDICATED WITH TYLENOL,
--- NOTE | 2024-04-26 14:16 | NUR ---
COMPLETED NETO PATIENT, PATIENT HAD LARGE BOWEL MOVEMENT; CALLED DR. JIANG AND INFORMED HIM; REMOVED IV SITE; SAFETY MEASURES IN PLACE, COMPLETED DISCHARGE WITH PATIENT AND INFORMED HIS
--- NOTE | 2024-04-26 14:20 | NUR ---
PATIENT SITTING SEMI DIAMOND IN BED EATING LUNCH; IN ROOM WITH PATIENT; ROOM AIR; BREATHING UNLABORED AND EVEN; DENIED ANY PAIN DENIED ANY N/D/V AT THIS TIME; STATED HE HAS NOT WATSON A BOWEL MOVEMENT YET BUT HE IS TRYING; TELE LEADS ARE ATTACHED AND WORKING; IV SITE CLEAN AND INTACT RUNNING WITH NS @100; NO COMPLAINTS AT THIST MAIONR; CALL LIGHT WITHIN REACH, VERABLIZED UNDERSTANDING ON HOW TO USE, PERSONAL ITEMS WITHIN REACH, BED IN LOWEST POSTION;SAFTEY MEASURES IN PLACE
--- NOTE | 2024-04-26 14:36 | NUR ---
IV site discontinued, cath intact. No edema , no redness, voices no discomfort. Discharge instructions given. Patient verbalizes understanding of same. Discharged in stable condition via Wheelchair to [facility] with family. All belongings sent with pt.
--- NOTE | 2024-04-26 15:06 | NUR ---
CALLED TOÑA TO GIVE REPORT LEFT VOICEMAIL BOTH TIMES
== END 2024-04-26 14:36 | DRG 698 ==
LOC: ED 10:31 → ED-I 14:30 → ED 14:51 → MS2 14:52
PROVIDERS: Family Medicine; Nurse Practitioner Family; ADMIT Student in an Organized Health Care Education/Training Program; ATTEND Student in an Organized Health Care Education/Training Program
PROC: 0T2BX0Z Change Drainage Device in Bladder, External Approach (ICD-10-PCS; principal; 2024-04-22)
PROC: 3E0234Z Introduction of Serum, Toxoid and Vaccine into Muscle, Percutaneous Approach (ICD-10-PCS; 2024-04-23)
DX: T83.511A Infection and inflammatory reaction due to indwelling urethral catheter, initial encounter (principal); J18.9 Pneumonia, unspecified organism; G91.9 Hydrocephalus, unspecified; K82.1 Hydrops of gallbladder; N17.9 Acute kidney failure, unspecified; N39.0 Urinary tract infection, site not specified; B96.4 Proteus (mirabilis) (morganii) as the cause of diseases classified elsewhere; F03.90 Unspecified dementia, unspecified severity, without behavioral disturbance, psychotic disturbance, mood disturbance, and anxiety; K80.20 Calculus of gallbladder without cholecystitis without obstruction; R74.01 Elevation of levels of liver transaminase levels; I12.9 Hypertensive chronic kidney disease with stage 1 through stage 4 chronic kidney disease, or unspecified chronic kidney disease; N18.9 Chronic kidney disease, unspecified; I95.9 Hypotension, unspecified; R33.9 Retention of urine, unspecified; K83.8 Other specified diseases of biliary tract; S82.891D Other fracture of right lower leg, subsequent encounter for closed fracture with routine healing; X58.XXXD Exposure to other specified factors, subsequent encounter; Y84.6 Urinary catheterization as the cause of abnormal reaction of the patient, or of later complication, without mention of misadventure at the time of the procedure; Z23 Encounter for immunization; Z96.0 Presence of urogenital implants; Z86.73 Personal history of transient ischemic attack (TIA), and cerebral infarction without residual deficits; Z20.822 Contact with and (suspected) exposure to COVID-19
CPT/HCPCS: J0456

== ENCOUNTER 2024-07-04 06:23 | Observation (INO) | payer MEDICARE ==
[2024-07-04] VITALS (14 sets, daily range): BP systolic 109–159; BP diastolic 62–92
[~2024-07-04] VITALS: Ht 177.8 cm; Wt 94.0 kg
[~2024-07-04 06:23] MED LIST changes: +AMLODIPINE BESYL5 MG PO; +REMERON15 MG PO; +TAMSULOSIN0.4 MG PO
--- NOTE | 2024-07-04 06:23 | NUR ---
PT TO ER BED 2 FOR TRIAGE VIA EMS STRETCHER IN NO APPARENT DISTRESS. CALL LIGHT WITHIN REACH AND PT AWAITING EDP EXAM.
--- NOTE | 2024-07-04 07:00 | NUR ---
REPORT RECEIVED, CARE ASSUMED. PATIENT DENIES ANY COMPLAINTS AT PRESENT. PATIENT IS CONFUSED TO TIME.
[2024-07-04 07:25] LABS: BASO% 0.4 % (0-3); IMMATURE GRANULOCYTES 0.1 % (0.0-5.0); LYMPH% 26.8 % (15-41); MEAN CELL VOLUME 88.3 fL CALC (80.0-100.0); MEAN CORPUSCULAR HGB 29.1 pG CALC (26.0-32.0); NEUT# 4.61 thou/uL (1.82-7.42); NEUT% 62.7 % (42-76); RED BLOOD COUNT 4.46 mill/uL (4.70-6.10); RED CELL DISTRI WIDTH 13.1 % (11.5-15.5)
[2024-07-04 07:31] LABS: HEMATOCRIT 39.4 % (39.0-50.0)
[2024-07-04 07:37] LABS: BILIRUBIN, TOTAL 0.6 mg/dL (0.2-1.3); CREATININE 1.3 mg/dL (0.7-1.3); MAGNESIUM 1.9 mg/dL (1.6-2.3); TOTAL PROTEIN 6.7 g/dL (6.3-8.2)
[2024-07-04 07:44] LABS: ALBUMIN 3.8 g/dL (3.2-5.0)
--- NOTE | 2024-07-04 07:48 | NUR ---
PATIENT ENCOURAGED TO VOID FOR URINE SAMPLE.
[2024-07-04] MEDS ORDERED: CIPROFLOXACN500 MG PO (08:05)
[2024-07-04] MEDS ORDERED: VALPROIC ACD250 M1 PO (08:06)
[2024-07-04 08:07] LABS: TSH, 3RD GENERATION 4.47 uIU/mL (0.47 - 4.68)
[2024-07-04] MEDS ORDERED: PROBIOTI2 PO (08:08)
[2024-07-04 09:00] LABS: URINE BILIRUBIN - DIPSTICK Negative (NEGATIVE); URINE BLOOD DIPSTICK Small (NEGATIVE); URINE GLUCOSE - DIPSTICK Negative (NEGATIVE); URINE KETONE Negative (NEGATIVE); URINE LEUK ESTERASE Negative (NEGATIVE); URINE NITRITE - DIPSTICK Negative (Negative); URINE PROTEIN - DIPSTICK 100 mg/dL (NEG-TRACE); URINE SPECIFIC GRAVITY 1.025
[2024-07-04 09:04] LABS: URINE COLOR Yellow
[2024-07-04 09:17] LABS: URINE BACTERIA RARE hpf; URINE CALCIUM OXALATE CRYSTALS FEW lpf
--- NOTE | 2024-07-04 09:41 | NUR ---
DR BOATENG AT BEDSIDE TO DISCUSS ALL RESULTS WITH TELECOMMUNICATION OPERATOR AND PLAN OF CARE.
[2024-07-04] MEDS ORDERED: ACETAMINOPHEN 325 MG/TAB PO PRN (10:45)
[2024-07-04] MEDS ORDERED: MAGNESIUM HYDROXIDE 30 ML UDC PO PRN (10:45)
[2024-07-04] MEDS ORDERED: SODIUM CHLORIDE 0.9% 1,000 ML IV PRN (10:45)
--- NOTE | 2024-07-04 12:15 | NUR ---
REPORT GIVEN TO NURSE HANS RN AT [facility]. PATIENT ADMITTED TO 2ND FLOOR MS ROOM 280.
--- NOTE | 2024-07-04 12:42 | NUR ---
PATIENT ARRIVED TO [facility] FROM THE ED TO ROOM 280. PATIENT A&OX2. BREATHING UNLABORED ON ROOM AIR. TELE INTACT. IV IN LEFT HAND SL;SITE CLEAN AND INTACT. PT DENIES ANY PAIN OR N/D/V AT THIS TIME. BED IN LOWEST POSITION. ALMARAZ IN PLACE WITH NO KINKS. CALL LIGHT WITHIN REACH;EDUCATED PT ON USE. POC ONGOING.
--- NOTE | 2024-07-04 16:21 | NUR ---
PATIENT LYING IN BED. AT BEDSIDE. NO SIGNS OF DISTRESS OR PAIN NOTED. TELE INTACT. IV IN LEFT HAND SL;SITE CLEAN AND INTACT. ALMARAZ IN PLACE WITH NO KINKS. NO SIGNS OF DISTRESS OR PAIN NOTED. BED IN LOWEST POSITION. BED ALARM ACTIVATED. CALL LIGHT WITHIN REACH. POC ONGOING.
--- NOTE | 2024-07-04 20:00 | NUR ---
RECEIVED REPORT FROM NURSE CYNTHIA, PATIENT RESTING IN BED, PATIENT CONFUSED ONLY ALERT TO NAME AND BIRTHDAY, NOT SITUATION, PLEASANT AT THIS TIME, SALINE LOCK PATENT FLUSHES WELL, HOOKED ON TELEMETRY, LUNG SOUNDS DIMINISHED, ALMARAZ DRAININGCLEAR YELLOW URINE, BREATHING EVEN UNALBORED BED ALARM IN PLACED.
[2024-07-04] MEDS ORDERED: MIRTAZAPINE 15 MG/TAB PO SCH (21:00)
[2024-07-04] MEDS ORDERED: ATORVASTATIN CALCIUM 10 MG/TAB PO SCH (21:00)
[2024-07-04] MEDS ORDERED: ENOXAPARIN SODIUM 40 MG/0.4 ML SYR SC SCH (21:00)
[2024-07-04] MEDS ORDERED: MEMANTINE Hydrochloride 10 MG/TAB PO SCH (21:00)
[2024-07-04] MEDS ORDERED: QUEtiapine FUMERATE 25 MG/TAB PO SCH (21:00)
[2024-07-04] MEDS ORDERED: VALPROATE SODIUM 250 MG/5 ML SYRUP PO SCH (21:00)
[2024-07-04] MEDS ORDERED: METOPROLOL TARTRATE 25 MG/TAB PO SCH (21:00)
--- NOTE | 2024-07-05 | NUR ---
PATIENT RESTING IN BED, BREATHING EVNE UNLABORED NO DISCOMFORTS NOTED AT THIS TIME CALL LIGHT IN REACHED, SITTER IN ROOM.
[2024-07-05 04:26] VITALS: BP 147/81
--- NOTE | 2024-07-05 04:42 | NUR ---
PATIENT RESTING IN BED, NO DISCOMFORTS NOTED AT THIS TIME, CALL LIGHT IN REACHED, SITTER IN ROOM.
[2024-07-05 05:44] LABS: BASO% 0.6 % (0-3); EOS% 1.8 % (0-8); HEMATOCRIT 38.7 % (39.0-50.0); HEMOGLOBIN 12.8 g/dl (14.0-18.0); IMMATURE GRANULOCYTES 0.2 % (0.0-5.0); LYMPH% 38.3 % (15-41); MEAN CELL VOLUME 88.2 fL CALC (80.0-100.0); MEAN CORPUSCULAR HGB 29.2 pG CALC (26.0-32.0); MEAN CORPUSCULAR HGB CONC 33.1 g/dL CAL (32.0-36.0); MONO% 10.3 % (2-13); NEUT# 3.05 thou/uL (1.82-7.42); NEUT% 48.8 % (42-76); RED BLOOD COUNT 4.39 mill/uL (4.70-6.10); RED CELL DISTRI WIDTH 13.1 % (11.5-15.5)
[2024-07-05 05:56] LABS: ALBUMIN 3.5 g/dL (3.2-5.0); BILIRUBIN, TOTAL 0.7 mg/dL (0.2-1.3); POTASSIUM 3.8 mmol/l (3.5-5.1)
[2024-07-05 06:00] LABS: CREATININE 1.2 mg/dL (0.7-1.3)
[2024-07-05 07:10] VITALS: BP 124/69
--- NOTE | 2024-07-05 07:16 | NUR ---
PT SLEEPING AT THIS TIME. ASKED PT IF HE WOULD LIKE TO TRANSFER TO CHAIR FOR BREAKFAST. PT STATED HE WOULD LIKE TO STAY IN BED A LITTLE LONGER AND TRANSFER TO CHAIR AT A LATER TIME. WILL ASK PT AT A LATER TIME IF HE WOULD LIKE TO GET UP TO CHAIR. BED ALARM ON. CALL LIGHT WITHIN REACH.
[2024-07-05] MEDS ORDERED: amLODIPine BESYLATE 5 MG/TAB PO SCH (09:00)
[2024-07-05] MEDS ORDERED: TAMSULOSIN HCL 0.4 MG CAP PO SCH (09:00)
[2024-07-05] MEDS ORDERED: QUETIAPINE FUMA25 MG PO (09:35)
--- NOTE | 2024-07-05 09:48 | NUR ---
pt back in bed, bed semi-fowlers with bed in lowest posistion. Bed alarm in place for pt safety. Assisted pt with bathing. Oral care performed. Pt had bowel movement, brief changed. Bedside table and call light within pt reach. Pt resting at this time. At bedside for observation for pt safety.
--- NOTE | 2024-07-05 12:55 | NUR ---
PATIENT DISCHARGED TO [facility], NURSE TO NURSE REPORT GIVEN TO [facility] NURSE LEVON. PATIENT AND SPOUSE RECIEVED VERBAL AND WRITTEN DC INSTRUCTIONS. PATIENT'S SPOUSE HAS ALL OF PATIENT BELONGINGS AND IV REMOVED IV CATH TIP INTACT. PATIENT A/OX2, NO C/O PAIN, NO S/S RESPIRATORY DISTRESS PATIENT ON ROOM AIR. [facility] STAFF TRANSPORTED PATIENT AND SPOUSE ACCOMPANIED
== END 2024-07-05 12:55 ==
LOC: ED 06:23 → ED-I 09:34 → MS2 09:51 → ED 09:51 → MS2 07-05 12:55
PROVIDERS: Internal Medicine; Nurse Practitioner Family; ADMIT Internal Medicine; ATTEND Internal Medicine
PROC: 0T2BX0Z Change Drainage Device in Bladder, External Approach (ICD-10-PCS; principal; 2024-07-04)
DX: R53.1 Weakness (principal); F03.911 Unspecified dementia, unspecified severity, with agitation; N31.9 Neuromuscular dysfunction of bladder, unspecified; I12.9 Hypertensive chronic kidney disease with stage 1 through stage 4 chronic kidney disease, or unspecified chronic kidney disease; N18.9 Chronic kidney disease, unspecified; R33.9 Retention of urine, unspecified; Z86.73 Personal history of transient ischemic attack (TIA), and cerebral infarction without residual deficits; Z91.81 History of falling; Z96.0 Presence of urogenital implants
CPT/HCPCS: G0378; J0696; J1650

== ENCOUNTER 2024-07-24 10:19 | Observation (INO) | payer MEDICARE ==
[~2024-07-24] VITALS: Ht 177.8 cm; Wt 72.4 kg
[2024-07-24] VITALS (51 sets, daily range): BP systolic 81–163; BP diastolic 54–131
[~2024-07-24 10:19] MED LIST changes: +CIPROFLOXACN500 MG PO; +PROBIOTI2 PO; +QUETIAPINE FUMA25 MG PO; +VALPROIC ACD250 M1 PO
[2024-07-24 10:41] LABS: BASO% 0.3 % (0-3); IMMATURE GRANULOCYTES 0.2 % (0.0-5.0); LYMPH% 14.5 % (15-41); MEAN CORPUSCULAR HGB 28.5 pG CALC (26.0-32.0); MEAN CORPUSCULAR HGB CONC 33.2 g/dL CAL (32.0-36.0); MONO% 5.9 % (2-13); NEUT# 4.8 thou/uL (1.82-7.42); NEUT% 78.1 % (42-76); RED BLOOD COUNT 5.22 mill/uL (4.70-6.10)
[2024-07-24 10:42] LABS: HEMATOCRIT 44.9 % (39.0-50.0); HEMOGLOBIN 14.9 g/dl (14.0-18.0)
[2024-07-24 10:52] LABS: BILIRUBIN, TOTAL 0.8 mg/dL (0.2-1.3); CREATININE 1.4 mg/dL (0.7-1.3)
[2024-07-24 11:02] LABS: ALBUMIN 4.5 g/dL (3.2-5.0); TOTAL PROTEIN 7.7 g/dL (6.3-8.2)
[2024-07-24] MEDS ORDERED: SODIUM CHLORIDE 0.9% 1,000 ML IV PRN (13:10)
[2024-07-24] MEDS ORDERED: ACETAMINOPHEN 325 MG/TAB PO PRN (13:10)
[2024-07-24] MEDS ORDERED: MAGNESIUM HYDROXIDE 30 ML UDC PO PRN (13:10)
[2024-07-24] MEDS ORDERED: Heparin SODIUM (Porcine) 5,000 UNITS/ML SDV SC SCH (14:00)
[2024-07-24] MEDS ORDERED: MIRALAX17 GM (14:47)
[2024-07-24] MEDS ORDERED: MILK OF MAGNES7.75 % (14:49)
[2024-07-24] MEDS ORDERED: MEMANTINE HYDRO10 MG (14:52)
[2024-07-25 04:00] VITALS: BP 140/91
[2024-07-25 05:06] LABS: BASO% 0.2 % (0-3); EOS% 1.3 % (0-8); HEMATOCRIT 41.6 % (39.0-50.0); IMMATURE GRANULOCYTES 0.1 % (0.0-5.0); LYMPH% 35.3 % (15-41); MEAN CELL VOLUME 87.8 fL CALC (80.0-100.0); MEAN CORPUSCULAR HGB 29.5 pG CALC (26.0-32.0); MEAN CORPUSCULAR HGB CONC 33.7 g/dL CAL (32.0-36.0); MONO% 7.9 % (2-13); NEUT# 4.64 thou/uL (1.82-7.42); NEUT% 55.2 % (42-76); RED BLOOD COUNT 4.74 mill/uL (4.70-6.10); RED CELL DISTRI WIDTH 13.1 % (11.5-15.5)
[2024-07-25 05:13] VITALS: BP 106/63
[2024-07-25 06:32] LABS: ALBUMIN 3.8 g/dL (3.2-5.0); BILIRUBIN, TOTAL 0.9 mg/dL (0.2-1.3); CREATININE 1.3 mg/dL (0.7-1.3); MAGNESIUM 1.8 mg/dL (1.6-2.3); POTASSIUM 4.2 mmol/l (3.5-5.1); TOTAL PROTEIN 6.5 g/dL (6.3-8.2)
[2024-07-25 08:38] VITALS: BP 125/70
[2024-07-25 11:03] VITALS: BP 147/87
[2024-07-25 15:00] VITALS: BP 126/83
== END 2024-07-25 15:15 ==
LOC: ED 10:19 → ED-I 12:40 → ED 13:00 → ED-I 13:01 → MS2 23:34
PROVIDERS: Family Medicine; Nurse Practitioner Family; ADMIT Internal Medicine; ATTEND Internal Medicine
DX: R07.9 Chest pain, unspecified (principal); I12.9 Hypertensive chronic kidney disease with stage 1 through stage 4 chronic kidney disease, or unspecified chronic kidney disease; N18.9 Chronic kidney disease, unspecified; F03.90 Unspecified dementia, unspecified severity, without behavioral disturbance, psychotic disturbance, mood disturbance, and anxiety; Z86.73 Personal history of transient ischemic attack (TIA), and cerebral infarction without residual deficits
CPT/HCPCS: G0378; J1644

== ENCOUNTER 2024-07-31 16:07 | Emergency (ER) | payer MEDICARE ==
[2024-07-31] VITALS (28 sets, daily range): BP systolic 139–193; BP diastolic 78–115
[~2024-07-31] VITALS: Ht 177.8 cm; Wt 84.0 kg
[~2024-07-31 16:07] MED LIST changes: +MEMANTINE HYDRO10 MG; +MILK OF MAGNES7.75 %; +MIRALAX17 GM
[2024-07-31 18:36] LABS: BASO% 0.4 % (0-3); HEMOGLOBIN 13.3 g/dl (14.0-18.0); IMMATURE GRANULOCYTES 0.2 % (0.0-5.0); LYMPH% 20.3 % (15-41); MEAN CELL VOLUME 86.6 fL CALC (80.0-100.0); MEAN CORPUSCULAR HGB 28.8 pG CALC (26.0-32.0); MEAN CORPUSCULAR HGB CONC 33.3 g/dL CAL (32.0-36.0); MONO% 10.7 % (2-13); NEUT# 5.38 thou/uL (1.82-7.42); NEUT% 66.4 % (42-76); RED BLOOD COUNT 4.62 mill/uL (4.70-6.10)
[2024-07-31 18:53] LABS: ALBUMIN 3.7 g/dL (3.2-5.0); BILIRUBIN, TOTAL 1.1 mg/dL (0.2-1.3); CREATININE 1.2 mg/dL (0.7-1.3); POTASSIUM 4.2 mmol/l (3.5-5.1); TOTAL PROTEIN 6.8 g/dL (6.3-8.2)
[2024-07-31] MEDS ORDERED: SODIUM CHLORIDE 0.9% 1,000 ML IV PRN (20:15)
[2024-07-31] MEDS ORDERED: hydrALAZINE HCL 20 MG/ML VIAL(1 ML) IV ONE (22:20)
== END 2024-07-31 22:50 | disposition short-term general hospital (02) ==
LOC: ED 16:07
PROVIDERS: Nurse Practitioner
DX: S72.141A Displaced intertrochanteric fracture of right femur, initial encounter for closed fracture (principal); I69.920 Aphasia following unspecified cerebrovascular disease; M16.0 Bilateral primary osteoarthritis of hip; I12.9 Hypertensive chronic kidney disease with stage 1 through stage 4 chronic kidney disease, or unspecified chronic kidney disease; N18.9 Chronic kidney disease, unspecified; F03.90 Unspecified dementia, unspecified severity, without behavioral disturbance, psychotic disturbance, mood disturbance, and anxiety; W05.0XXA Fall from non-moving wheelchair, initial encounter; Y92.129 Unspecified place in nursing home as the place of occurrence of the external cause; Z96.0 Presence of urogenital implants
CPT/HCPCS: J0360